=== PATIENT | male | born 2000 | race African-American/Black ===

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

== ENCOUNTER 2022-09-08 07:01 | Emergency (ER) | payer OTHER ==
--- NOTE | 2022-09-08 07:42 | ED Physician Documentation ---
PD HPI URI - Stated complaint Stated Complaint: CONGESTION - Chief complaint Chief Complaint: Resp - History obtained from History obtained from: Patient - Additional information Additional information: Patient is a 22-year-old male presenting for evaluation of 1 week history of cough and nasal congestion. He reports sick contact with his mother who tested positive for COVID 3 weeks ago. He reports initially that his cough was productive of clear mucus but today he noticed a streak of pink in it. However he has also been using a red TheraFlu. He reports it did not taste like blood. He shows me a picture of his sputum. He reports having a decreased appetite but no vomiting or diarrhea. No abdominal tenderness, chest pain or difficulty breathing. Review of Systems Constitutional: denies: Fever Nose: reports: Congestion Cardiac: denies: Chest pain / pressure Respiratory: reports: Cough. denies: Dyspnea GI: denies: Abdominal Pain, Vomiting Neurologic: denies: Headache PD PAST MEDICAL HISTORY - Past Surgical History Past Surgical History: No - Present Medications Home Medications: Ambulatory Orders Medication Instructions Recorded Confirmed No Known Home Medications 04/28/19 09/08/22 - Allergies Allergies/Adverse Reactions: Allergies Allergy/AdvReac Type Severity Reaction Status Date / Time No Known Drug Allergies Allergy Verified 09/08/22 07:21 - Social History Does the pt smoke?: No Smoking Status: Never smoker Does the pt drink ETOH?: No Does the pt have substance abuse?: No - Immunizations Immunizations are current?: Yes - POLST Patient has POLST: No PD ED PE NORMAL - General General: Alert and oriented X 3, No acute distress, Well developed/nourished - HEENT HEENT: Atraumatic, Moist mucous membranes, Pharynx benign - Neck Neck: Supple, no meningeal sign - Cardiac Cardiac: RRR - Respiratory Respiratory: No respiratory distress, Clear bilaterally - Abdomen Abdomen: Soft, Non tender, Non distended - Derm Derm: Warm and dry - Extremities Extremities: No edema, No calf tenderness / cord - Neuro Neuro: Normal speech Results - Vitals Vitals: Vital Signs - 24 hr 09/08/22 09/08/22 07:18 07:55 Temperature 37 C 37 C Heart Rate 65 69 Respiratory 16 18 Rate Blood Pressure 119/78 121/81 H O2 Saturation 96 96 Oxygen O2 Source Room air - Labs Labs: Laboratory Tests 09/08/22 07:20 Nasal Adenovirus (PCR) NOT DETECTED Nasal B. parapertussis DNA (PCR) NOT DETECTED Nasal Coronavir 229E PCR NOT DETECTED Nasal Coronavir HKU1 PCR NOT DETECTED Nasal Coronavir NL63 PCR NOT DETECTED Nasal Coronavir OC43 PCR NOT DETECTED Nasal Enterovir/Rhinovir PCR NOT DETECTED Nasal Influenza B PCR NOT DETECTED Nasal Influenza A PCR NOT DETECTED Nasal Parainfluen 1 PCR NOT DETECTED Nasal Parainfluen 2 PCR NOT DETECTED Nasal Parainfluen 3 PCR NOT DETECTED Nasal Parainfluen 4 PCR NOT DETECTED Nasal RSV (PCR) DETECTED A Nasal B.pertussis DNA PCR NOT DETECTED Nasal C.pneumoniae (PCR) NOT DETECTED Fortino Human Metapneumo PCR NOT DETECTED Nasal M.pneumoniae (PCR) NOT DETECTED Nasal SARS-CoV-2 (PCR) NOT DETECTED PD Medical Decision Making - ED course Complexity details: reviewed results, re-evaluated patient, d/w patient ED course: Patient with URI symptoms for 1 week with recent known COVID exposure. His vital signs appear stable here. He reports mostly clear sputum but this morning noticed a little pink tinge. However he has also been using red TheraFlu.Patient with URI symptoms for 1 week with recent known COVID exposure. His vital signs appear stable here. He reports mostly clear sputum but this morning noticed a little pink tinge. However he has also been using red TheraFlu.Otherwise no risk factors for PE Or malignancy. Chest x-ray was reviewed by me and I see no signs of pneumonia or pneumothorax or lung mass.Respiratory panel is pending at time of discharge but suspect viral etiology. Panel is positive for RSV. Patient been counseled to continue with supportive care. He is tolerating p.o. well and is nonlabored with his breathing. He is counseled on concerning symptoms to return for. Departure - Departure Disposition: 01 Home, Self Care Clinical Impression: URI with cough and congestion Condition: Stable Instructions: ED Viral Syndrome Comments: I reviewed your chest x-ray and do not see any obvious pneumonia. The radiologist will also interpret the images later this morning. If there are any new findings then I will notify you. Please continue to rest and stay hydrated. Your respiratory panel is pending. This will check for COVID, influenza, RSV and a number of other common cold viruses. We will notify you if it is positive for COVID. Otherwise you can check the patient portal for your results. Please continue with acetaminophen or ibuprofen as needed for fevers and body aches, plenty of fluids/hydration and rest. Return to the ER with any worsening symptoms such as difficulty breathing or vomiting. Forms: Activity restrictions Discharge Date/Time: 09/08/22 07:58
[2022-09-08 07:56] VITALS: BP 121/81
--- NOTE | 2022-09-08 08:10 | XRAY Report ---
PROCEDURE: Chest 1 View X-Ray INDICATIONS: cough/congestion x 7 days TECHNIQUE: One view of the chest was acquired. COMPARISON: None. FINDINGS: Surgical changes and devices: None. Lungs and pleura: No pleural effusions or pneumothorax. Lungs are clear. Mediastinum: Mediastinal contours appear normal. Heart size is normal. Bones and chest wall: No suspicious bony lesions. Overlying soft tissues appear unremarkable. IMPRESSION: No evidence acute pulmonary process. Reviewed by: Jayy Chua MD on 09/08/2022 8:09 AM [facility] Approved by: Jayy Chua MD on 09/08/2022 8:09 AM [facility] Station ID: [id number]
[2022-09-08 08:30] LABS: B. PARAPERTUSSIS- RESP PCR PAN NOT DETECTED; B. PERTUSSIS- RESP PCR PANEL NOT DETECTED; C. PNEUMONIAE- RESP PCR PANEL NOT DETECTED; CORONAVIRUS 229E-RESP PCR NOT DETECTED; CORONAVIRUS HKU1-RESP PCR NOT DETECTED; CORONAVIRUS NL63-RESP PCR NOT DETECTED; CORONAVIRUS OC43-RESP PCR NOT DETECTED; HUMAN METAPNEUMOVIRUS NOT DETECTED; INFLUENZA A- RESP PCR PANEL NOT DETECTED; INFLUENZA B - RESP PCR PANEL NOT DETECTED; M. PNEUMONIAE- RESP PCR PANEL NOT DETECTED; PARAINFLUENZA VIRUS 1 NOT DETECTED; PARAINFLUENZA VIRUS 2 NOT DETECTED; PARAINFLUENZA VIRUS 3 NOT DETECTED; PARAINFLUENZA VIRUS 4 NOT DETECTED; RHINOVIRUS/ENTEROVIRUS NOT DETECTED; RSV- RESP PCR PANEL DETECTED; SARS-CoV-2 -RESP PCR PANEL NOT DETECTED
== END 2022-09-08 07:58 | disposition home or self-care (01) ==
LOC: ED 07:01
DX: J06.9 Acute upper respiratory infection, unspecified (principal); B97.4 Respiratory syncytial virus as the cause of diseases classified elsewhere; Z20.822 Contact with and (suspected) exposure to COVID-19
CPT/HCPCS: 87633; 99283; 99284